=== PATIENT | male | born 1965 | race African-American/Black ===

== ENCOUNTER 2016-05-08 11:26 | Emergency (ER) | payer OTHER ==
[~2016-05-08] VITALS: Ht 170.2 cm; Wt 70.0 kg
[~2016-05-08 11:26] MED LIST: IBUP800 PO
[2016-05-08 11:29] VITALS: BP 145/67; PULSE 82; RESP 16; TEMP 97.7; O2SAT 98
[2016-05-08] MEDS ORDERED: IBUP-232 PO (12:06)
--- NOTE | 2016-05-08 12:06 | PD ---
HPI Chief Complaint: Injury Time Seen by Provider: 12:01 Travel History International Travel<30 days: No Contact w/Intl Traveler<30days: No Traveled to known affect area: No History of Present Illness HPI 50-year-old male presents to the emergency department for evaluation after a piece of the door frame fell and hit him on the top of his head. He states this just occurred prior to arrival. He is employed here at [employer]. He states he just wanted to be checked out. The patient denies falling over any LOC. He states the pain is mild at this time. Patient denies having any bleeding disorders. He does not take any anticoagulants. He denies any medical problems or taking medications. Patient denies having any abrasions or lacerations. Patient denies any other injury or complaint at this time. Patient denies any vomiting. No amnesia. No seizure or neurological complaints. Patient is not intoxicated. [facility] Past Medical History Musculoskeletal: Yes (CHRONIC LOW BACK PAIN) Social History Alcohol Use: Yes Tobacco Use: Yes Substance Use: No Allergies-Medications (Allergen,Severity, Reaction): Coded Allergies: No Known Allergies (Unverified , 05/08/16) Reported Meds & Prescriptions Reported Meds & Active Scripts Active No Active Prescriptions or Reported Medications Review of Systems Except as stated in HPI: all other systems reviewed are Neg Physical Exam Narrative GENERAL: Well-developed well-nourished male patient, ambulatory. Afebrile. SKIN: Warm and dry. HEAD: Normocephalic. Atraumatic. ENT: Mucosa pink and moist. No erythema or exudates. No uvular edema. No uvular , palatal, or tonsillar deviation. Airway patent. Nasal turbinates appear normal without nasal blood, purulent drainage or septal hematoma. Bilateral tympanic membranes are clear without erythema or perforation. EYES: No scleral icterus. No injection or drainage. NECK: Supple, trachea midline. No JVD or lymphadenopathy. CARDIOVASCULAR: Regular rate and rhythm without murmurs, gallops, or rubs. RESPIRATORY: Breath sounds equal bilaterally. No accessory muscle use. Lungs sounds are clear to auscultation. GASTROINTESTINAL: Abdomen soft, non-tender, nondistended. MUSCULOSKELETAL: No cyanosis, or edema. BACK: Nontender without obvious deformity. No CVA tenderness. Data Data Last Documented VS Vital Signs Date Time Temp Pulse Resp B/P Pulse Ox O2 Delivery O2 Flow Rate FiO2 05/08/16 11:29 97.7 82 16 145/67 98 Room Air Orders Ibuprofen (Motrin) (05/08/16 12:15) MDM Medical Decision Making Medical Screen Exam Complete: Yes Emergency Medical Condition: Yes Medical Record Reviewed: Yes Differential Diagnosis Minor head injury versus intracranial abnormality versus medical clearance Narrative Course 50-year-old male presents to the emergency department after piece of a door frame fell on his head while at work. He did not fall over have any LOC. He has no other injury or complaints. According to the [facility] [place] had rules, imaging is not indicated at this time. I discussed this with the patient who verbalizes agreement with this. I did educate him on emergent conditions that he should return immediately for. He verbalizes understanding and agreement. Patient is given ibuprofen 600 mg by mouth in the emergency department. He'll be discharged with a prescription for ibuprofen. He is encouraged to follow up with his worker's comp doctor or return the emergency department for any emergent condition as we discussed. The patient was discharged in stable condition with instructions, including return instructions and follow up instructions. Diagnosis Primary Impression: Minor head injury without loss of consciousness Qualified Code: S09.90XA - Minor head injury without loss of consciousness, initial encounter Referrals: Primary Care Physician call for appointment Patient Instructions: General Instructions, Head Injury (ED) Additional Instructions: Ice for 20 minutes 4-5 times daily. Ibuprofen as instructed as needed with food for pain. Follow-up with your primary care physician. Return to the emergency department for any acute worsening of symptoms. Med/Other Pt SpecificInfo: Prescription(s) given Scripts Ibuprofen 600 Mg [id number] Mg PO TID PRN (PAIN SCALE 1 TO 10) #21 TAB Ref 0 Prov:Molly Gonzalez 05/08/16 Disposition: 01 DISCHARGE HOME Condition: Stable Molly Gonzalez May 08, 2016 12:06
[2016-05-08] MEDS ORDERED: IBUPROFEN 600 MG TAB PO ONE (12:15)
== END 2016-05-08 12:38 | disposition home or self-care (01) ==
LOC: NEPB 11:26
DX: S09.90XA Unspecified injury of head, initial encounter (principal); Z72.0 Tobacco use; Z87.39 Personal history of other diseases of the musculoskeletal system and connective tissue; W20.8XXA Other cause of strike by thrown, projected or falling object, initial encounter; Y92.239 Unspecified place in hospital as the place of occurrence of the external cause; Y99.0 Civilian activity done for income or pay
CPT/HCPCS: 99283